=== PATIENT | female | born 1995 | race Caucasian/White ===

== ENCOUNTER 2019-06-19 12:26 | Emergency (ER) | payer OTHER, SELFPAY ==
--- NOTE | ~2019-06-19 | XR_ITS ---
EXAMINATION: XR abdomen/kub 1V EXAM DATE: 06/19/2019 14:49 INDICATION: Right ureteral stone. Right flank pain. TECHNIQUE: Frontal projection of the upper abdomen, frontal projection lower abdomen/pelvis for inter pretation. Correlation is made to chest CT same date. FINDINGS: 3 mm right distal ureteral stone is identified, indicated. There is expected amount of col onic stool and gas. No small bowel dilation, nonobstructive bowel gas pattern. There is no organo megaly suspected. The bones are unremarkable. Lung bases are unremarkable. IMPRESSION: Small distal right ureteral stone identified. Reviewed, dictated and finalized at location A. 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
--- NOTE | ~2019-06-19 | CT_ITS ---
EXAMINATION: CT abdomen pelvis wo con DATE: 06/19/2019 13:40 INDICATION: Right flank pain TECHNIQUE: Computed tomography (CT) of the abdomen and pelvis was performed without intravenous contr ast. The dose-length product was 203.74 mGy-cm. Automated exposure control and iterative reconstructi on technique were employed. COMPARISON: No prior studies for comparison. FINDINGS: Lung bases unremarkable. Heart size normal. No significant pleural or pericardial effusion. No significant vascular abnormality. There are multiple punctate 1-2 mm nonobstructing left renal stones. There are nonobstructing right r enal stones. There is a calcification in the right pelvis measuring 3.4 mm, likely obstructing distal right ureteral stone, image 148. There is mild right hydronephrosis, although the distal ureter is n ot well visualized. Bladder is unremarkable. Focal fatty infiltration of the liver at the falciform ligament. The spleen, pancreas, adrenal glands are unremarkable. Nonobstructive bowel gas pattern. No abnormal pelvic masses or fluid collections. No free air or free fluid. Gallbladder is present. IMPRESSION: 1. Probable obstructing 3.4 mm distal right ureteral stone with mild hydronephrosis. 2: Nonobstructing bilateral nephrolithiasis. Reviewed, dictated and finalized at location A. 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 Probable obstructing 3.4 mm distal right ureteral stone with mild hydronephr osis. 2: Nonobstructing bilateral nephrolithiasis.
[2019-06-19 13:05] LABS: Add Urine Microscopic? YES; Appearance Urine Sl Cloudy (Clear); Bilirubin Urine Negative (Negative); Blood Urine 3+ (Negative); Color Urine Yellow (Yellow); Glucose Urine UA Negative (Negative); Ketones Urine Trace (Negative); Leukocyte Esterase Ur Negative LEU/UL (Negative); Nitrate Urine Negative (Negative); Protein Urine Negative (Negative); Specific Grav Ur >= 1.030 (1.010-1.020); Urobilinogen Urine 0.2 mg/dL (0.2-1.0)
[2019-06-19] MEDS: KETOROLAC 30 MG/ML VIAL (*BKC) (13:08)
[2019-06-19 13:13] LABS: RBC Urine 21-50 /hpf (0-2)
[2019-06-19 13:14] LABS: Bacteria Urine 1+ /hpf; Mucus Urine Moderate /lpf; Squamous Epithelial Cell Urine Few /hpf (Few); WBC Urine 0-3 /hpf (0-3)
[2019-06-19] MEDS: SODIUM CHLORIDE 0.9% IV 1,000 ML 999 ML (13:15)
--- NOTE | 2019-06-19 13:16 | ED.ABDPAIN ---
HPI - Abdominal Pain General Chief Complaint: Urogenital-Female Stated Complaint: back pain Time Seen by Provider: 06/19/19 13:05 Source: patient Mode of arrival: ambulatory Limitations: no limitations History of Present Illness HPI narrative: chanda thomas a 23-year-old female patient. She presents ambulatory to the emergency room. She states that she has had right flank pain for the past 2 days. It is a sharp pain. She rates it at 8/10. She has not taken anything for the pain at home. She states that she had a similar type of pain last December. At that time she did not have a CT scan done. Her mother has history of kidney stones. Rate denies any hematuria. She does have some dysuria. No history of fever. No nausea or vomiting. MD elicited complaint: flank pain Pertinent past history: other ( History of hyperthyroidism. History of depression.) Pain Consistency: constant Location: R flank Severity: severe Pain scale (0-10): 8 Quality: sharp Radiation: none Exacerbating factors: nothing Relieving factors: nothing Context: confirms other ( Spontaneous onset. Had similar symptoms in December of last year.) Associated symptoms: other ( No history of nausea vomiting or diarrhea. No history of hematuria. Has dysuria.) Treatments prior to arrival: other ( None) Related Data Home Medications Medication Instructions Recorded Confirmed albuterol sulfate [ProAir HFA] 1 puff INHALATION QID PRN 06/19/19 06/19/19 etonogestrel-ethinyl estradiol 1 vag ring VAGINAL ONCE 06/19/19 06/19/19 [NuvaRing] fluoxetine 40 mg PO DAILY 06/19/19 06/19/19 levothyroxine [Synthroid] 200 mcg PO DAILY 06/19/19 06/19/19 Allergies Allergy/AdvReac Type Severity Reaction Status Date / Time No Known Drug Allergies Allergy Verified 03/30/12 12:43 Review of Systems Review of Systems: All systems reviewed & are unremarkable except as noted in HPI and below Constitutional: Constitutional: Reports as per HPI, Reports no additional constitutional complaints, Denies chills, Denies fever(s) and Denies weakness Eyes: Eyes: Reports as per HPI, Reports no additional eye complaints and Denies change in vision ENT: Reports system reviewed and no additional complaints, except as documented, Denies dizziness, Denies epistaxis, Denies nasal congestion and Denies sore throat Cardiovascular: Cardiovascular: Reports as per HPI, Reports no additional cardiovascular complaints, Denies chest pain and Denies radiating jaw, neck or arm pain Respiratory: Respiratory: Reports as per HPI, Reports no additional respiratory complaints, Denies cough and Denies dyspnea Gastrointestinal: Gastrointestinal: Reports as per HPI, Reports no additional gastrointestinal complaints, Denies diarrhea and Denies vomiting Genitourinary: Genitourinary: Reports no additional female genitourinary complaints and Reports flank pain Comments: has some dysuria. No fever. Musculoskeletal: Musculoskeletal: Reports no additional musculoskeletal complaints and Denies arthralgias Integumentary/Breasts: Skin/Breast: Reports system reviewed and no additional complaints, except as docu, Denies erythema and Denies rash Neurologic: Reports system reviewed and no additional complaints, except as documented, Denies dizziness, Denies headache(s), Denies focal weakness, Denies numbness and Denies weakness Psychiatric: Psychiatric: Reports no additional psychiatric complaints, Reports as per HPI and Reports depression Endocrine: Comments: History of hypothyroidism Hematologic/Lymphatic: Hematologic/Lymphatic: Reports no additional hematologic/lymphatic complaints, Reports as per HPI, Denies easy bleeding and Denies easy bruising Allergic/Immunologic: Allergic/Immunologic: Reports no additional allergic/immunologic complaints, Denies lip swelling and Denies tongue swelling PMFSH Past Medical History Medical History (Updated 06/19/19 @ 14:19 by Brant Smith MD) Depression Hypothyroidism
[2019-06-19 13:20] VITALS: BP 159/98; PULSE 98; RESP 20; TEMP 37.5; O2SAT 96
[2019-06-19 13:24] LABS: Pregnancy On Board Control Negative; Specific Gravity Ur > 1.030 (1.010-1.035); Urine Pregnancy Test Negative
[2019-06-19 13:33] LABS: Basophils Absolute Auto 0.05 K/mm3 (0.00-0.10); Basophils Percent Auto 0.5 % (0.0-1.0); Eosinophils Absolute Auto 0.04 K/mm3 (0.02-0.50); Eosinophils Percent Auto 0.4 % (1.0-6.0); Hematocrit 36.4 % (35.0-49.0); Hemoglobin 12.3 g/dL (12.0-15.0); Immature Granulocyte Absolute 0.03 K/mm3 (0.00-0.00); Immature Granulocyte Percent A 0.3 % (0.0-0.0); Lymphocytes Absolute Auto 3.17 K/mm3 (1.10-4.50); Mean Corpuscular HGB Conc 33.8 g/dL (32.0-36.0); Mean Corpuscular Hemoglobin 30.8 pg (27.0-31.0); Mean Corpuscular Volume 91.2 fL (78.0-102.0); Mean Platelet Volume 9.6 fl (9.2-11.8); Monocytes Absolute Auto 0.78 K/mm3 (0.10-0.90); Monocytes Percent Auto 7.6 % (2.0-11.0); Neutrophils Absolute Auto 6.1 K/mm3 (1.7-7.2); Neutrophils Percent Auto 60.2 % (50.0-70.0); Platelet Count Result 382 K/mm3 (150-420); Red Blood Count 3.99 M/mm3 (4.20-5.40); Red Cell Distribution Width 12.6 % (11.6-14.4); White Blood Count 10.2 K/mm3 (4.8-10.8)
[2019-06-19 13:49] LABS: Alanine Aminotransferase 27 U/L (14-59); Albumin Level 3.5 g/dL (3.4-5.0); Alkaline Phosphatase 74 U/L (46-116); Anion Gap 11.5 mmol/L (7-16); Aspartate Amino Transferase 23 U/L (15-37); Bilirubin,Total 0.7 mg/dL (0.00-1.00); Blood Urea Nitrogen 7 mg/dL (7-18); Calcium 8.7 mg/dL (8.5-10.1); Carbon Dioxide 25 mmol/L (21-32); Chloride 107 mmol/L (98-108); Estimated Glomerular Filt Rate > 60; Glucose 105 mg/dL (70-99); Osmolality Calculated 288 mOsm/kg (285-295); Potassium 3.5 mmol/L (3.5-5.1); Sodium 140 mmol/L (136-145); Total Protein 7.2 g/dL (6.4-8.2)
[2019-06-19 15:10] VITALS: RESP 16
== END 2019-06-19 15:13 | disposition home or self-care (01) ==
PROVIDERS: Emergency Provider Surgery; PCP Family Medicine
DX: N20.1 Calculus of ureter (principal)
CPT/HCPCS: 36415; 74018; 74176; 80053; 81001; 81025; 85025; 96361; 96365; 96375; 99283; 99284; J0696; J1885; J7030

== ENCOUNTER 2019-07-01 06:02 | Emergency (ER) | payer OTHER, SELFPAY ==
--- NOTE | ~2019-07-01 | CT_ITS ---
EXAMINATION: CT abdomen pelvis wo con EXAM DATE: 07/01/2019 07:34 INDICATION: Right flank pain. TECHNIQUE: Spiral CT of the abdomen and pelvis was performed without contrast. Axial, coronal and sag ittal images were reviewed. The dose-length product (DLP) for this examination was 457.93 mGy-cm. T he exposure was tailored according to patient size (auto mA exposure control), and iterative reconstr uction (ASIR) was used as additional dose reduction technique. Comparison is made to prior examinatio n from 06/19/2019. FINDINGS: There is a right UVJ 3 mm stone, mild to moderate right-sided obstructive nephropathy, mild interval increase compared to prior study. Several additional punctate bilateral calyceal stones. T he uterus is unremarkable. The bladder is unremarkable. The liver, spleen, adrenal glands and panc reas are unremarkable. Gallbladder is unremarkable. No biliary obstruction. There is no retroperit oscar or pelvic lymphadenopathy. The appendix is normal. The stomach and small bowel are unremarkable. There is expected amount of c olonic stool. No free intraperitoneal gas. The heart is normal in size. There are no pericardial or pleural effusions. Several right lower lobe small nodules likely postinfectious given appearance , patient demographic. There are no osteoblastic or osteolytic lesions identified. IMPRESSION: 1. Right UVJ 3 mm nephrolithiasis with mild to moderate obstructive nephropathy. 2. Several right basilar nodules likely postinfectious. Reviewed, dictated and finalized at location A. IMPRESSION: 1. Right UVJ 3 mm nephrolithiasis with mild to moderate obstructive nephropath y. 2. Several right basilar nodules likely postinfectious.
[2019-07-01 06:04] VITALS: BP 142/100; PULSE 88; RESP 20; TEMP 36.6; O2SAT 99
--- NOTE | 2019-07-01 06:20 | ED.GENADULT ---
HPI - General Adult General Chief complaint: Urogenital-Female Stated complaint: kidney stones History of Present Illness HPI narrative: Shelia Is a 23-year-old with a past medical history of hypothyroidism and a previous kidney stone that presented to the emergency department with right flank pain. She was diagnosed with a kidney stone 2 weeks ago. She has had waxing waning pain since that time. this time she had excruciating pain and ran out of medications. She denies any dysuria, fevers, chills, nausea, vomiting, chest pain and shortness of breath but does admit constipation. Related Data Home Medications Medication Instructions Recorded Confirmed albuterol sulfate [ProAir HFA] 1 puff INHALATION QID PRN 06/19/19 07/01/19 etonogestrel-ethinyl estradiol 1 vag ring VAGINAL ONCE 06/19/19 07/01/19 [NuvaRing] fluoxetine 40 mg PO DAILY 06/19/19 07/01/19 levothyroxine [Synthroid] 200 mcg PO DAILY 06/19/19 07/01/19 Allergies Allergy/AdvReac Type Severity Reaction Status Date / Time No Known Drug Allergies Allergy Verified 03/30/12 12:43 Review of Systems Constitutional: Constitutional: Reports no additional constitutional complaints Eyes: Eyes: Reports no additional eye complaints ENT: Reports system reviewed and no additional complaints, except as documented Cardiovascular: Cardiovascular: Reports no additional cardiovascular complaints Respiratory: Respiratory: Reports no additional respiratory complaints Gastrointestinal: Gastrointestinal: Reports no additional gastrointestinal complaints Genitourinary: Genitourinary: Reports as per HPI Musculoskeletal: Musculoskeletal: Reports no additional musculoskeletal complaints Integumentary/Breasts: Skin/Breast: Reports system reviewed and no additional complaints, except as docu Neurologic: Reports system reviewed and no additional complaints, except as documented Psychiatric: Psychiatric: Reports no additional psychiatric complaints Endocrine: Endocrine: Reports no additional endocrine complaints Hematologic/Lymphatic: Hematologic/Lymphatic: Reports no additional hematologic/lymphatic complaints Allergic/Immunologic: Allergic/Immunologic: Reports no additional allergic/immunologic complaints PMFSH Past Medical History Medical History Depression Hypothyroidism Surgical History Surgical History Hx of tonsillectomy Family History Family History Mother No problems noted. Social History Social History Additional smoking assessment comments: uses vape every day Alcohol intake: current Substance use: current Substance use type: marijuana Exam Const: General: alert Orientation/consciousness: patient oriented x3 Limitations: No altered mental status Other: mild distress, was rocking back and forth HENMT: Head: normal to inspection Other: normocephalic, atraumatic Eyes: Conjunctivae: conjunctivae normal Pupils: Equal, round and reactive pupils present Neck: Neck: normal visual inspection Resp: Effort & Inspection: normal respiratory effort Auscultation: clear to auscultation bilaterally Cardio: Rate: regular rate Rhythm: regular rhythm GI: GI Palp: Yes Soft to palpation, No Tenderness to palpation present (GI), No Guarding due to palpation present (GI) and No Rigid due to palpation : Other: right CVA tenderness, mild suprapubic tenderness Skin: General skin exam: normal color Rashes: no rashes Neuro: General: patient oriented x3 and moves all extremities Extrem: General: normal to inspection Psych: Mental Status: mental status grossly normal Course Course Emergency Course: Shelia was evaluated. She was given 4mg of morphine for pain. A UA, u-HCG, CT abdomen, CBC and CMP. As urine pregna
[2019-07-01] MEDS: MORPHINE SULFATE 4 MG/ML INJ IM (06:23)
[2019-07-01 06:31] LABS: Appearance Urine Clear (Clear); Bilirubin Urine Negative (Negative); Color Urine Yellow (Yellow); Glucose Urine UA Negative (Negative); Ketones Urine Negative (Negative); Leukocyte Esterase Ur Negative (Negative); Nitrate Urine Negative (Negative); Protein Urine Negative (Negative); Urobilinogen Urine 0.2 mg/dL (0.2-1.0)
[2019-07-01 06:38] LABS: Add Urine Microscopic? YES; Blood Urine Trace-Intact (Negative); Pregnancy On Board Control Negative; Squamous Epithelial Cell Urine Rare /hpf (Few); Urine Pregnancy Test Negative; WBC Urine 0-3 /hpf (0-3)
[2019-07-01 06:39] LABS: Bacteria Urine Trace /hpf
[2019-07-01] MEDS: KETOROLAC (*BKC) 60 MG/2 ML VIAL IM (06:44)
[2019-07-01 06:53] LABS: Basophils Absolute Auto 0.05 K/mm3 (0.00-0.10); Basophils Percent Auto 0.4 % (0.0-1.0); Eosinophils Absolute Auto 0.12 K/mm3 (0.02-0.50); Eosinophils Percent Auto 0.9 % (1.0-6.0); Hematocrit 39.2 % (35.0-49.0); Hemoglobin 12.9 g/dL (12.0-15.0); Immature Granulocyte Absolute 0.07 K/mm3 (0.00-0.00); Immature Granulocyte Percent A 0.5 % (0.0-0.0); Lymphocytes Absolute Auto 3.24 K/mm3 (1.10-4.50); Lymphocytes Percent Auto 23.6 % (18.0-42.0); Mean Corpuscular HGB Conc 32.9 g/dL (32.0-36.0); Mean Corpuscular Hemoglobin 30.9 pg (27.0-31.0); Mean Corpuscular Volume 93.8 fL (78.0-102.0); Mean Platelet Volume 9.3 fl (9.2-11.8); Monocytes Percent Auto 9.5 % (2.0-11.0); Neutrophils Absolute Auto 8.9 K/mm3 (1.7-7.2); Neutrophils Percent Auto 65.1 % (50.0-70.0); Platelet Count Result 387 K/mm3 (150-420); Red Blood Count 4.18 M/mm3 (4.20-5.40); Red Cell Distribution Width 12.6 % (11.6-14.4); White Blood Count 13.7 K/mm3 (4.8-10.8)
[2019-07-01 07:10] LABS: Alanine Aminotransferase 31 U/L (14-59); Albumin Level 3.7 g/dL (3.4-5.0); Alkaline Phosphatase 82 U/L (46-116); Anion Gap 14.8 mmol/L (7-16); Aspartate Amino Transferase 20 U/L (15-37); Bilirubin,Total 0.1 mg/dL (0.00-1.00); Blood Urea Nitrogen 10 mg/dL (7-18); Calcium 8.5 mg/dL (8.5-10.1); Carbon Dioxide 26 mmol/L (21-32); Chloride 107 mmol/L (98-108); Estimated CRCL calculation 74 ml/min; Estimated Glomerular Filt Rate > 60; Glucose 93 mg/dL (70-99); Lipase 89 U/L (73-393); Osmolality Calculated 297 mOsm/kg (285-295); Potassium 3.8 mmol/L (3.5-5.1); Sodium 144 mmol/L (136-145)
--- NOTE | 2019-07-01 07:46 | PC.NURSE ---
Pt. resting and has no c/o at this time. Explained extended wait time for CT report reading. Will keep informed as soon as report is received.
[2019-07-01 08:16] VITALS: BP 125/78; PULSE 85; RESP 20; O2SAT 98
== END 2019-07-01 08:18 | disposition home or self-care (01) ==
PROVIDERS: Emergency Provider Family Medicine; PCP Family Medicine
DX: R10.9 Unspecified abdominal pain (principal)
CPT/HCPCS: 36415; 74176; 80053; 81001; 81025; 83690; 85025; 96372; 99282; 99284; J1885; J2270

== ENCOUNTER 2019-09-15 19:14 | Emergency (ER) | payer OTHER, SELFPAY ==
--- NOTE | ~2019-09-15 | XR_ITS ---
EXAMINATION: XR ankle RT min 3V, XR foot RT min 3V EXAM DATE: 09/15/2019 20:17 (accession [id number]), 09/15/2019 20:18 (accession [id number]) INDICATION: Initial encounter following injury, with pain of the right ankle, foot. TECHNIQUE: Right foot dorsoplantar, lateral and oblique projections obtained and reviewed. Right ank le frontal, lateral and oblique projections obtained and reviewed. Comparison is made to prior examin ation from prior right foot examination from 10/01/2013. FINDINGS: Right metatarsal bones unremarkable. The right ankle mortise appears intact. Normal Boehl er's angle. There are no acute fractures or dislocations identified. There is no subcutaneous gas. The soft tissue is unremarkable. There are no radiopaque foreign bodies. IMPRESSION: 1. Right foot, ankle exam without acute osseous findings. Reviewed, dictated and finalized at location A. IMPRESSION: 1. Right foot, ankle exam without acute osseous findings.
--- NOTE | ~2019-09-15 | XR_ITS ---
EXAMINATION: XR lumbar spine 2-3V EXAM DATE: 09/15/2019 20:18 INDICATION: Jumped from second-story. TECHNIQUE: Lumber spine frontal, lateral, lateral L5-S1 projections for interpretation. There is no prior study for comparison. FINDINGS: There are no acute fractures identified. There are small Schmorl's nodes at many of the t horacolumbar endplates, minimal disc disease. Vertebral body and disc heights are well-maintained. Th e vertebral bodies are aligned in the AP dimension. No spondylolysis. Sacrum, sacroiliac joints, sacr al arcuate lines are intact. Paraspinal soft tissue is unremarkable. IMPRESSION: No acute lumbar findings suspected. Reviewed, dictated and finalized at location A.
--- NOTE | ~2019-09-15 | XR_ITS ---
EXAMINATION: XR ankle LT min 3V, XR foot LT min 3V EXAM DATE: 09/15/2019 20:17 (accession [id number]), 09/15/2019 20:18 (accession [id number]) INDICATION: No known recent injury provided at this time. Pain of the left foot, ankle. Jumped from second-story. TECHNIQUE: Left foot dorsoplantar, lateral and oblique projections obtained and reviewed. Left ankle frontal, lateral and oblique projections obtained and reviewed. There is no prior study for compari son. FINDINGS: There is a vertical lucency identified on the lateral projection through the posterior mal leolus, posterior aspect of the tibial plafond. This finding has been indicated, marked on the examin ation for review, clinical correlation. This is most likely an acute closed posttraumatic nondisplace d fracture. There is swelling over the ankle laterally. Left metatarsal bones unremarkable. The lef t ankle mortise appears intact. Boehler's angle is normal. IMPRESSION: Probable acute nondisplaced left posterior tibial plafond fracture. Recommend orthopedic consult. Reviewed, dictated and finalized at location A. IMPRESSION: Probable acute nondisplaced left posterior tibial plafond fracture. Recommend orthopedic consult.
[2019-09-15 19:20] VITALS: BP 144/98; PULSE 97; RESP 19; TEMP 37.1; O2SAT 97
--- NOTE | 2019-09-15 19:27 | ED.GENADULT ---
HPI - General Adult General Chief complaint: Extremity Injury, Lower Stated complaint: fall Time Seen by Provider: 09/15/19 19:21 Source: RN notes reviewed History of Present Illness HPI narrative: Patient presents emergency department from home for a fall. Patient states that she is from [place] states that they are some condos here and she had come in last night and gone to her hotel where she was staying with a friend her friend's room is next door and she got locked out of her room she states that she went into her friend's room and tried to climb to the other balcony to get into the room and fell approximately 12 feet. Patient states she laid on her bilateral feet she denies striking her head or any other injuries she states that since that time she is a progressive pain in her bilateral feet to the point that she is no longer able to walk she denies striking her head or loss of consciousness chest pain shortness of breath abdominal pain nausea vomiting low back pain numbness or tingling in the extremities or any other symptoms she denies taking any pain medication at home Related Data Home Medications Medication Instructions Recorded Confirmed etonogestrel-ethinyl estradiol 1 vag ring VAGINAL ONCE 09/15/19 [NuvaRing] fluoxetine 40 mg PO DAILY 09/15/19 levothyroxine 200 mcg PO DAILY 09/15/19 Allergies Allergy/AdvReac Type Severity Reaction Status Date / Time No Known Allergies Allergy Verified 09/15/19 19:20 Review of Systems Review of Systems: Narrative: Gen.: Denies fevers or chills Eyes: Denies eye pain or visual change ENT: Denies congestion Respiratory: Denies shortness of breath or cough CV: Denies chest pain or palpitations GI: Denies abdominal pain nausea, emesis or diarrhea denies hematuria Musculoskeletal: D see HPI Neuro: Denies numbness, tingling, weakness or focal weakness Skin: Denies rash Except as documented, all other systems reviewed and negative COUNT INCLUDES THE [facility] Past Medical History Medical History (Updated 09/15/19 @ 22:27 by Alfredo Underwood DO) Hypothyroidism Family History Family History (Updated 10/01/13 @ 12:40 by DOCTOR UNKNOWN) Other Cerebrovascular accident Family history of arthritis Family history of cardiovascular disease Family history of lung disease Hypertension Social History Social History Smoking status: Never smoker Gender identity (if verbalized by the patient): Female Exam Narrative: Exam Narrative: APPEARANCE: Well appearing, no apparent distress, well-nourished. HEENT: normocephalic atraumtaic. TMs clear bilaterally. Oral mucosa moist. No tenderness over bilateral zygomatic arch. Full range of motion of jaw without pain. EYES: PERRL NECK: Supple. No midline tenderness to palpation. Full range of motion without pain RESPIRATORY: No respiratory distress. Clear to auscultation bilaterally CARDIOVASCULAR: Regular rate and rhythm without murmurs rubs or gallops. ABDOMINAL: Soft, nontender, nondistended, no rebound or guarding MUSCULOSKELETAl: Moves all extremities. No tenderness to palpation of bilateral upper extremities. No clubbing cyanosis or edema bilateral lower extremities are tender to palpation diffusely of the ankles and calcaneus region the bilateral knees and hips are nontender to palpation Alexia dorsalis pedis pulse 2+ bilateral lower extremities neurovascular intact Back: No midline thoracic or lumbar tenderness to palpation Pelvis: Stable, nontender NEURO: Awake and alert ?3. Follows commands. Speech normal. No focal deficits. SKIN:: Warm, dry. Normal Color Course Course Emergency Course: Discussed with Dr. Olivares presentation work-up. This time agrees with plan for posterior short leg splint follow-up as outpatient Discussed with patient results of workup and diagnosis. Discussed need for follow-up with primary care, proper use of medication, and reasons to return to the emergency d
[2019-09-15 22:45] VITALS: BP 138/87; PULSE 91; RESP 16; O2SAT 100
[2019-09-15] MEDS: IBUPROFEN 600 MG TABLET PO (22:45)
== END 2019-09-15 22:45 | disposition home or self-care (01) ==
PROVIDERS: Emergency Provider Emergency Medicine; PCP Family Medicine
DX: S82.875A Nondisplaced pilon fracture of left tibia, initial encounter for closed fracture (principal); E03.9 Hypothyroidism, unspecified; W13.0XXA Fall from, out of or through balcony, initial encounter
CPT/HCPCS: 29515; 72100; 73610; 73630; 81025; 99284; A9270

== ENCOUNTER 2019-09-20 09:21 | Outpatient (CLI) | payer OTHER, SELFPAY ==
--- NOTE | ~2019-09-20 | XR_ITS ---
XR ankle LT min 3V 09/20/2019 09:41 INDICATION: Status post fall from second-story. Left ankle pain and swelling. Medial laceration. PROCEDURE: 3 views left ankle COMPARISON: 10/20/2011 FINDINGS: There is a vertically oriented lucency in the distal aspect of the tibia posteriorly, suspi cious for nondisplaced fracture. Ankle mortise intact. Mild lateral soft tissue swelling. The soft ti ssues appear within normal limits. No foreign bodies are identified. IMPRESSION: 1: Possible nondisplaced fracture involving the distal tibia posteriorly. Consider correlation with C T or MRI. Reviewed, dictated and finalized at location A. IMPRESSION: 1: Possible nondisplaced fracture involving the distal tibia posteriorly. Consi karyna correlation with CT or MRI.
== END 2019-09-20 09:22 | disposition home or self-care (01) ==
PROVIDERS: PCP Family Medicine; Visit Provider Orthopaedic Surgery
DX: S99.912A Unspecified injury of left ankle, initial encounter (principal)
CPT/HCPCS: 73610

== ENCOUNTER 2020-04-24 10:26 | Outpatient (CLI) | payer OTHER, SELFPAY ==
[2020-04-24 22:22] LABS: SARS-CoV-2 RNA PCR Positive
== END 2020-04-24 10:27 | disposition home or self-care (01) ==
LOC: CHSLAB 10:29
DX: U07.1 COVID-19 (principal)
CPT/HCPCS: C9803; U0003

== ENCOUNTER 2021-04-02 14:57 | Outpatient (CLI) | payer OTHER, SELFPAY ==
[2021-04-02 20:07] LABS: SARS-CoV-2 Ag Negative (Negative)
== END 2021-04-02 14:58 | disposition home or self-care (01) ==
LOC: CHSLAB 15:01
PROVIDERS: Visit Provider Nurse Practitioner
DX: R05.9 Cough, unspecified (principal); Z20.822 Contact with and (suspected) exposure to COVID-19
CPT/HCPCS: 87426; C9803

== ENCOUNTER 2021-10-04 06:05 | Emergency (ER) | payer OTHER, SELFPAY ==
--- NOTE | ~2021-10-04 | CT_ITS ---
EXAMINATION: CT abdomen pelvis wo con DATE: 10/04/2021 07:00 INDICATION: Bilateral flank pain. Fever. Nausea. TECHNIQUE: Computed tomography (CT) of the abdomen and pelvis was performed without intravenous contr ast. Automated exposure control and iterative reconstruction technique were employed. The dose-length product was 631.51 mGy-cm. COMPARISON: CT abdomen and pelvis 07/01/2019 FINDINGS: The visualized portions of the lung bases demonstrate minimal atelectasis. No pleural effus ion. The heart size is normal. No pericardial effusion. The liver, gallbladder, spleen, pancreas, and adrenal glands are normal. There are four 1-2 mm stones in right kidney. There are 3 mm and 2 mm sto som in left kidney. There is mild left hydronephrosis and hydroureter. There is a 4 mm stone in dista l left ureter. There are no dilated loops of bowel. The appendix is normal. There are no pathological ly enlarged lymph nodes. There is no free intraperitoneal fluid. There is mild thoracolumbar spondylo sis. IMPRESSION: 1. 4 mm stone in distal left ureter with mild left hydronephrosis and hydroureter. 2. Bilateral nonobstructing kidney stones. Reviewed, dictated and finalized at location A. IMPRESSION: 1. 4 mm stone in distal left ureter with mild left hydronephrosis and hydrouret er. 2. Bilateral nonobstructing kidney stones.
[2021-10-04 06:15] VITALS: BP 103/75; PULSE 100; RESP 18; TEMP 37.7; O2SAT 98
[2021-10-04 06:15] LABS: Add Urine Microscopic? YES; Appearance Urine Clear (Clear); Bilirubin Urine Negative (Negative); Blood Urine 2+ (Negative); Color Urine Yellow (Yellow); Glucose Urine UA Negative (Negative); Ketones Urine Trace (Negative); Leukocyte Esterase Ur 1+ LEU/UL (Negative); Nitrate Urine Negative (Negative); Protein Urine Trace (Negative); Specific Grav Ur 1.015 (1.010-1.020)
[2021-10-04 06:18] LABS: Squamous Epithelial Cell Urine Moderate /hpf (Few)
[2021-10-04 06:19] LABS: Bacteria Urine 2+ /hpf
--- NOTE | 2021-10-04 06:27 | ED.FEMALEGU ---
HPI - Female Genitourinary General Chief complaint: Urogenital-Female Stated complaint: possible kidney stone/covid + Time Seen by Provider: 10/04/21 06:28 Source: patient Mode of arrival: ambulatory Limitations: no limitations History of Present Illness MD elicited complaint: dysuria, UTI and flank pain Pertinent past history: other ( kidney stones) Onset (ago): day(s) (1) Severity: moderate Female Urogenital Radiation: LLQ Quality of pain: sharp and stabbing Consistency: constant Vaginal discharge: none Vaginal bleeding: none Urinary symptoms: Dysuria, Urgency and Frequency Exacerbating factors: none Relieving factors: none Associated symptoms: chills, nausea, vomiting and other ( cough patient recently diagnosed with COVID) Treatment prior to arrival: none Related Data Home Medications Medication Instructions Recorded Confirmed etonogestrel 0.12 mg-ethinyl 1 vag ring vaginal ONCE 06/19/19 10/04/21 estradiol 0.015 mg/24 hr vaginal ring (NuvaRing) levothyroxine 200 mcg tablet 200 mcg PO DAILY 09/15/19 10/04/21 Lexapro 10 mg PO DIRECTED 10/04/21 10/04/21 Allergies Allergy/AdvReac Type Severity Reaction Status Date / Time No Known Drug Allergies Allergy Unknown Unknown Verified 10/04/21 06:19 Review of Systems Review of Systems: All systems reviewed & are unremarkable except as noted in HPI and below PMFSH Past Medical History Medical History (Updated 10/04/21 @ 07:20 by Daniel Rose MD) Anxiety Asthma Depression Depression Fracture, posterior malleolus Hearing loss Hypothyroidism Hypothyroidism Stomach pain Surgical History Surgical History Hx of tonsillectomy Family History Family History Mother No problems noted. 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 Gender identity (if verbalized by the patient): Female Exam Const: General: no acute distress, alert and ill appearing acutely Nutritional Appearance: well nourished Orientation/consciousness: patient oriented x3 Limitations: no limitations HENMT: Head: normal to inspection Ears: external ears normal General nose exam: Normal external nose present Face and sinus: normal facial exam Eyes: Conjunctivae: conjunctivae normal Pupils: Equal, round and reactive pupils present EOM: EOMs intact bilaterally Neck: Neck: normal visual inspection Resp: Effort & Inspection: normal respiratory effort Auscultation: clear to auscultation bilaterally Cardio: Rate: regular rate Rhythm: regular rhythm GI: GI Palp: Yes Soft to palpation, Yes Tenderness to palpation present (GI) ( moderate left upper quadrant), Yes Guarding due to palpation present (GI) ( mild) and No Rebound tenderness present Auscultation: normal bowel sounds Rectal Exam: normal sphincter tone Back/Spine/Pelvis: Back: CVA tenderness ( left flank) Cervical Spine: cervical ROM normal Thoracic/Lumbar Spine: thoraco-lumbar ROM normal Skin: General skin exam: normal color Rashes: no rashes Neuro: General: patient oriented x3, moves all extremities, no focal motor deficits and CN's II-XI intact bilaterally Speech: normal speech Gait exam (Neuro): Normal gait present Extrem: General: normal to inspection and no clubbing, cyanosis or edema Psych: Appearance: grossly normal and well kempt Affect: normal affect Attitude: cooperative MDM - Fem
[2021-10-04] MEDS: KETOROLAC 30 MG/ML VIAL (*BKC) IM (06:35)
[2021-10-04 06:45] LABS: Hematocrit 37.7 % (35.0-49.0); Hemoglobin 12.6 g/dL (12.0-15.0); Mean Corpuscular HGB Conc 33.4 g/dL (32.0-36.0); Mean Corpuscular Hemoglobin 31.8 pg (27.0-31.0); Mean Corpuscular Volume 95.2 fL (78.0-102.0); Mean Platelet Volume 9.7 fl (9.2-11.8); Platelet Count Result 230 K/mm3 (150-420); Red Blood Count 3.96 M/mm3 (4.20-5.40); Red Cell Distribution Width 12.9 % (11.6-14.4); White Blood Count 5.9 K/mm3 (4.8-10.8)
[2021-10-04 06:57] LABS: Anion Gap 9 mmol/L (8-16); Blood Urea Nitrogen 10 mg/dL (7-18); Calcium 8.5 mg/dL (8.5-10.1); Carbon Dioxide 22 mmol/L (21-32); Chloride 106 mmol/L (98-108); Estimated CRCL calculation 80 ml/min; Estimated Glomerular Filt Rate > 60; Glucose 101 mg/dL (70-99); Osmolality Calculated 283 mOsm/kg (285-295); Potassium 3.7 mmol/L (3.5-5.1); Sodium 137 mmol/L (136-145)
[2021-10-04 07:20] VITALS: BP 113/62; PULSE 85; RESP 16; TEMP 37.7; O2SAT 98
[2021-10-04 07:24] LABS: Band Neutrophils Percent 0 % (0-6); Basophils Absolute Manual 0.05 K/mm3 (0-0.1); Basophils Percent Manual 1 % (0-1); Eosinophils Percent Manual 0 % (1-6); Lymphocytes Absolute Manual 0.53 K/mm3 (1.1-4.5); Lymphocytes Percent Manual 9 % (18-44); Monocytes Absolute Manual 0.59 K/mm3 (0.1-0.90); Monocytes Percent Manual 10 % (3-9); Neutrophils Absolute Manual 4.72 K/mm3 (1.7-7.2); Neutrophils Percent Manual 80 % (46-73); Platelet Estimate Adequate (Adequate); Total Cells Counted 100
== END 2021-10-04 07:25 | disposition home or self-care (01) ==
PROVIDERS: Emergency Provider Emergency Medicine; PCP Family Medicine
DX: N20.1 Calculus of ureter (principal); N39.0 Urinary tract infection, site not specified
CPT/HCPCS: 36415; 74176; 80048; 81001; 85025; 87086; 87088; 96372; 99284; J1885

== ENCOUNTER 2022-07-30 18:15 | Emergency (ER) | payer OTHER, SELFPAY ==
--- NOTE | ~2022-07-30 | XR_ITS ---
XR wrist RT min 3V 07/30/2022 19:06 INDICATION: Right wrist pain PROCEDURE: 4 views right wrist COMPARISON: No prior studies for comparison. FINDINGS: Fracture, dislocation or subluxation is not identified. The soft tissues appear within norm al limits. No foreign bodies are identified. IMPRESSION: 1: NO ACUTE BONE OR JOINT ABNORMALITY IDENTIFIED. Reviewed, dictated and finalized at location A.
--- NOTE | ~2022-07-30 | XR_ITS ---
XR hand RT min 3V 07/30/2022 19:05 INDICATION: Right hand pain PROCEDURE: 3 views right hand COMPARISON: No prior studies for comparison. FINDINGS: Fracture, dislocation or subluxation is not identified. The soft tissues appear within norm al limits. No foreign bodies are identified. IMPRESSION: 1: NO ACUTE BONE OR JOINT ABNORMALITY IDENTIFIED. Reviewed, dictated and finalized at location A.
[2022-07-30 18:24] VITALS: BP 116/72; PULSE 89; RESP 18; TEMP 36.6; O2SAT 100
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
[2022-07-30 19:35] VITALS: BP 121/81; PULSE 88; RESP 20; TEMP 36.7; O2SAT 100
== END 2022-07-30 19:37 | disposition home or self-care (01) ==
PROVIDERS: Emergency Provider Internal Medicine Critical Care Medicine
DX: M25.531 Pain in right wrist (principal); M79.641 Pain in right hand; E03.9 Hypothyroidism, unspecified; Z87.891 Personal history of nicotine dependence; W22.09XA Striking against other stationary object, initial encounter
CPT/HCPCS: 73110; 73130; 99283

== ENCOUNTER 2023-03-16 03:59 | Emergency (ER) | payer SELFPAY ==
[2023-03-16 04:05] VITALS: BP 133/86; PULSE 86; RESP 18; TEMP 37; O2SAT 98
[2023-03-16] MEDS: ACETAMINOPHEN 160 MG/5 ML ORAL SYRINGE 640 MG PO (04:15)
[2023-03-16] MEDS: prednisoLONE ORAL SOLN 30 MG/10 ML SOLUTION PO (04:16)
[2023-03-16 04:58] LABS: Strep Group A RT-PCR NOT DETECTED (Negative)
[2023-03-16 05:10] LABS: Influenza A QL RT-PCR Negative (Negative); Influenza B QL RT-PCR Negative (Negative); SARS-CoV-2 RNA PCR Negative (Negative)
[2023-03-16 05:14] LABS: RSV RNA, RT-PCR Negative (Negative)
--- NOTE | 2023-03-16 05:18 | ED.URI ---
HPI - URI/Sore Throat General Chief Complaint: Upper Respiratory Infection Stated Complaint: Ear Pain Time Seen by Provider: 03/16/23 03:59 Source: patient Mode of arrival: ambulatory Limitations: no limitations History of Present Illness HPI Narrative: Patient presents with sore throat with bilateral ear pressure sinus pressure in the frontal and maxillary sinus area with tender submandibular glands no shortness of breath no audible wheezing no fever chills. MD elicited complaint: sore throat, nasal congestion and sinus pain Related Data Home Medications Medication Instructions Recorded Confirmed etonogestrel 0.12 mg-ethinyl 1 vag ring vaginal ONCE 06/19/19 03/16/23 estradiol 0.015 mg/24 hr vaginal ring (NuvaRing) levothyroxine 200 mcg tablet 150 mcg PO DAILY 09/15/19 03/16/23 hydroxyzine pamoate 50 mg capsule 100 mg PO DAILY 07/30/22 03/16/23 Allergies Allergy/AdvReac Type Severity Reaction Status Date / Time No Known Drug Allergies Allergy Unknown Unknown Verified 07/30/22 18:46 Review of Systems Review of Systems: All systems reviewed & are unremarkable except as noted in HPI and below PMFSH Past Medical History Medical History (Updated 03/16/23 @ 05:21 by Manas Perdue MD) Anxiety Asthma Depression Depression Fracture, posterior malleolus Hearing loss Hypothyroidism Hypothyroidism Stomach pain Surgical History Surgical History Hx of tonsillectomy Family History Family History Mother No problems noted. 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 Gender identity (if verbalized by the patient): Female Exam Const: General: healthy appearing Nutritional Appearance: well nourished Orientation/consciousness: patient oriented x3 HENMT: Other: Frontal maxillary sinus tenderness with palpation with bilateral ear dullness Neck: Neck: normal visual inspection and lymphadenopathy Chest: Chest palpation & inspection: normal inspection of the chest Resp: Effort & Inspection: normal respiratory effort Cardio: Rate: regular rate Rhythm: regular rhythm Course Course Emergency Course: reassessment patient after receiving a dose of Tylenol and Orapred feels much better RSV COVID influenza and strep were all negative, will give her dose of IM ceftriaxone prior to discharge. Vital Signs Vital signs: Vital Signs Temperature 37.0 C 03/16/23 04:05 Pulse Rate 86 03/16/23 04:05 Respiratory Rate 18 03/16/23 04:05 Blood Pressure 133/86 03/16/23 04:05 Pulse Oximetry 98 03/16/23 04:05 Oxygen Delivery Room Air 03/16/23 04:05 Temperature 37.0 C 03/16/23 04:05 Pulse Rate 86 03/16/23 04:05 Respiratory Rate 18 03/16/23 04:05 Blood Pressure 133/86 03/16/23 04:05 Pulse Oximetry 98 03/16/23 04:05 Oxygen Delivery Room Air 03/16/23 04:05 MDM - URI/Sore Throat Lab Data Labs: Lab Results 03/16/23 Range/Units 03:59 Influenza A (RT-PCR) Negative (Negative) Influenza B (RT-PCR) Negative (Negative) RSV (RT-PCR) Negative (Negative) SARS-CoV-2 RNA (RT-PCR) Negative (Negative) Group A Strep (PCR) Not detected (Negative) Critical Care Time Critical Care Time Critical Care Time: No Discharge Plan Discharge Clinical Impression: Sinusitis Qualifiers: Sinusitis location: frontal
[2023-03-16] MEDS: cefTRIAXone 1 GM, LIDOCAINE HCL 1% LOCAL INJ 2.1 ML IM (05:29)
[2023-03-16 05:37] VITALS: BP 100/67; PULSE 74; RESP 18; TEMP 37.1; O2SAT 97
== END 2023-03-16 05:40 | disposition home or self-care (01) ==
PROVIDERS: Emergency Provider Emergency Medicine; PCP Family Medicine
DX: J01.10 Acute frontal sinusitis, unspecified (principal); E03.9 Hypothyroidism, unspecified; Z79.899 Other long term (current) drug therapy; Z87.891 Personal history of nicotine dependence; Z20.822 Contact with and (suspected) exposure to COVID-19
CPT/HCPCS: 87637; 87651; 96372; 99283; A9270; J0696

== ENCOUNTER 2023-06-24 09:54 | Emergency (ER) | payer OTHER, SELFPAY ==
--- NOTE | ~2023-06-24 | CT_ITS ---
EXAMINATION: CT abdomen pelvis w con DATE: 06/24/2023 13:41 INDICATION: Abdominal pain TECHNIQUE: Computed tomography (CT) of the abdomen and pelvis was performed with 100 mL Omnipaque-350 intravenous contrast. Automated exposure control and iterative reconstruction technique were employe d. The dose-length product was 444.67 mGy-cm. COMPARISON: None FINDINGS: Lung bases are clear. Heart size is normal. No pericardial or pleural effusion. Liver, gallbladder, s pleen, pancreas and bilateral adrenal glands are normal. Bilateral nonobstructing nephrolithiasis inc luding 1 mm and 2 mm stones at lower pole calyces of the left kidney and 1 mm stone at the lower pole of the right kidney. No ureteral stones or hydronephrosis. Bowels including the appendix are normal. Bladder is normal. 2.9 cm left adnexal cyst/follicle. Bladder, anteverted uterus and right adnexa ar e unremarkable. No density likely contraceptive ring in the vaginal vault. Small amount of likely phy siologic free fluid in the pelvis. No abscess or free intraperitoneal gas. No pathologically enlarged abdominal or pelvic lymphadenopathy. Mild to moderate lower thoracic spondylosis. Multiple small Reynold morl's nodes in the lumbar and lower thoracic spine. IMPRESSION: 1. Bilateral nonobstructing nephrolithiasis. No acute intra-abdominal/pelvic process. Reviewed, dictated and finalized at location L. IMPRESSION: 1. Bilateral nonobstructing nephrolithiasis. No acute intra-abdominal/pelvic pr ocess.
--- NOTE | ~2023-06-24 | XR_ITS ---
EXAMINATION: XR chest 2V DATE: 06/24/2023 10:45 INDICATION: Carbon monoxide exposure with generalized chest pain TECHNIQUE: frontal and lateral views of the chest were obtained. COMPARISON: None FINDINGS: The lungs are clear with no focal airspace opacities, pulmonary edema, pleural effusion or pneumothor ax. The cardiomediastinal silhouette is normal. Visualized bones and soft tissues are unremarkable. IMPRESSION: 1. No acute cardiopulmonary disease. Reviewed, dictated and finalized at location L.
[2023-06-24 09:53] VITALS: BP 128/71; PULSE 84; RESP 16; TEMP 36.6; O2SAT 100
[2023-06-24 09:55] VITALS: BP 128/71; PULSE 77; RESP 16; TEMP 36.5; O2SAT 100
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
[2023-06-24] MEDS: SODIUM CHLORIDE 0.9% IV 1,000 ML 999 ML IV CONT (10:23)
[2023-06-24 10:42] LABS: Base Excess ABG -3.1 mmol/L (0-2); Carboxyhemoglobin 1.6 % (0-1.5); HCO3 ABG 17.6 mmol/L (23-29); Methemoglobin ABG 0.3 % (0-1.5); Oxygen Saturation ABG 98.5 % (95-97); Oxyhemoglobin 96.6 % (94-100); PCO2 ABG 22.2 mmHg (35-45); PO2 ABG 121.7 mmHg (80-90); Red Cell Distribution Width 13.2 % (11.6-14.4); Reduced Hemoglobin 1.5 % (0-1.5); Total Hemoglobin 13.9 g/dL (12.0-18.0); pH ABG 7.52 (7.35-7.45)
[2023-06-24 10:43] LABS: Device ROOM AIR; Modified Allen's Test Pass; Site Drawn LEFT RADIAL
[2023-06-24 12:09] LABS: Alanine Aminotransferase 19 U/L (14-59); Albumin Level 2.9 g/dL (3.4-5.0); Alkaline Phosphatase 69 U/L (46-116); Aspartate Amino Transferase 12 U/L (15-37); Bilirubin,Total 0.2 mg/dL (0.00-1.00); Blood Urea Nitrogen 8 mg/dL (7-18); Calcium 7.9 mg/dL (8.5-10.1); Chloride 109 mmol/L (98-108); Estimated CRCL calculation 114 ml/min; Estimated Glomerular Filt Rate > 60; Glucose 75 mg/dL (70-99); Lipase 17 U/L (16-77); Osmolality Calculated 291 mOsm/kg (285-295); Potassium 3.7 mmol/L (3.5-5.1); Sodium 142 mmol/L (136-145); Total Protein 5.8 g/dL (6.4-8.2)
[2023-06-24 12:16] LABS: Anion Gap 8 mmol/L (8-16); Carbon Dioxide 25 mmol/L (21-32)
[2023-06-24 13:09] LABS: Pregnancy On Board Control Positive; Urine Pregnancy Test Negative
[2023-06-24 13:40] LABS: Appearance Urine Slightly Cloudy (Clear); Bilirubin Urine Negative (Negative); Blood Urine 1+ (Negative); Color Urine Yellow (Yellow); Glucose Urine UA Negative (Negative); Ketones Urine Trace (Negative); Leukocyte Esterase Ur Negative LEU/UL (Negative); Nitrate Urine Negative (Negative); Protein Urine Negative (Negative); Specific Grav Ur >= 1.030 (1.010-1.020); Urobilinogen Urine 0.2 mg/dL (0.2-1.0)
[2023-06-24 13:47] LABS: Add Urine Microscopic? YES
[2023-06-24 13:48] LABS: Bacteria Urine 1+ /hpf; Mucus Urine Moderate /lpf; Squamous Epithelial Cell Urine Few /hpf (Few); WBC Urine 0-3 /hpf (0-3)
[2023-06-24 14:40] VITALS: BP 130/73; PULSE 73; RESP 18
[2023-06-24 16:20] VITALS: BP 134/72; PULSE 78; RESP 20; TEMP 36.7; O2SAT 99
--- NOTE | 2023-06-24 16:21 | PC.NURSE ---
1615 attempted to call report awaiting call back
--- NOTE | 2023-06-24 16:57 | PC.NURSE ---
1651 [facility] here for transport
[2023-06-24 17:01] LABS: Ferritin 21 ng/mL (8-252); Folic Acid 14.6 ng/mL (8.6->20); Iron 37 ug/dL (50-170); Percent Iron Saturation 13 % (12-57); Vitamin B12 382 pg/mL (193-986)
[2023-06-25 06:31] LABS: White Blood Count 7.8 K/mm3 (4.8-10.8)
[2023-06-25 06:32] LABS: Hematocrit 37.3 % (35.0-49.0); Hemoglobin 12.3 g/dL (12.0-15.0); Mean Platelet Volume 9.3 fl (9.2-11.8); Platelet Count Result 259 K/mm3 (150-420)
[2023-06-25 06:33] LABS: Basophils Percent Auto 0.4 % (0.0-1.0); Eosinophils Percent Auto 3.2 % (1.0-6.0); Immature Granulocyte Absolute 0.03 K/mm3 (0.00-0.00); Immature Granulocyte Percent A 0.3 % (0.0-0.0); Lymphocytes Percent Auto 38.3 % (18.0-42.0); Monocytes Percent Auto 10.8 % (2.0-11.0); Neutrophils Percent Auto 46.9 % (50.0-70.0)
[2023-06-25 06:34] LABS: Basophils Absolute Auto 0.03 K/mm3 (0.00-0.10); Eosinophils Absolute Auto 0.25 K/mm3 (0.02-0.50); Monocytes Absolute Auto 0.85 K/mm3 (0.10-0.90); Neutrophils Absolute Auto 3.68 K/mm3 (1.70-7.20)
[2023-06-27 11:18] LABS: Haptoglobin 166 mg/dL (43-212)
== END 2023-06-24 16:57 | disposition short-term general hospital (02) ==
PROVIDERS: Emergency Provider Emergency Medicine; PCP Family Medicine
DX: D64.9 Anemia, unspecified (principal); E03.9 Hypothyroidism, unspecified; Z79.899 Other long term (current) drug therapy; Z87.891 Personal history of nicotine dependence
CPT/HCPCS: 36415; 36600; 71046; 74177; 80053; 81001; 81025; 82375; 82607; 82728; 82746; 82805; 83010; 83050; 83540; 83550; 83690; 85025; 96360; 99285; J7030; Q9967

== ENCOUNTER 2023-06-24 17:42 | Observation (INO) | payer OTHER, SELFPAY ==
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
--- NOTE | 2023-06-24 17:58 | PC.NURSE ---
This patient, Shelia Hayes, was admitted to Medical Room 249-01. Patient/family oriented to hospital policies and general routines including ID bracelet, bed and alarms, visiting hours, pain management, procedures, bathroom and other care routines, personal items, smoking policy, room service/diet, and visiting hours. Information on how to activate the Rapid Response Team has been discussed. Patient/Family are encouraged to report perceived risks to care and to ask questions if they do not understand what they are told or what they should do.
[2023-06-24 18:09] LABS: Immature Reticulocyte Fraction 7.9 % (3.0-15.9); Reticulocyte Hemoglobin Conten 33.1 pg (28.2-35.7); Reticulocyte Percent 1.53 % (0.7-4.3); Reticulocytes Absolute 0.07 M/mm3 (0.02-0.10)
[2023-06-24 18:25] LABS: Prealbumin 20.7 mg/dL (17.6-36.0)
[2023-06-24 18:58] VITALS: BP 128/76; PULSE 76; RESP 18; TEMP 36.2; O2SAT 100
[2023-06-24 19:00] LABS: Hematocrit 38.2 % (37.0-47.0); Hemoglobin 12.4 g/dL (12.0-15.0)
[2023-06-24 20:00] VITALS: PULSE 72; RESP 18; O2SAT 100
[2023-06-24] MEDS: ACETAMINOPHEN 325 MG TABLET 650 MG PO (20:24)
[2023-06-24] MEDS: ONDANSETRON INJ 4 MG/2 ML VIAL IV PUSH (20:24)
[2023-06-24 22:15] VITALS: BMI 27.8
[2023-06-24 22:17] LABS: Free T4 Free Thyroxine Reflex 0.58 ng/dL (0.78-2.19)
[2023-06-24 22:21] VITALS: BP 120/65; PULSE 60; RESP 16; TEMP 36.4; O2SAT 99
[2023-06-25 01:33] LABS: IFOB Positive Control Positive; Immunochemical Fecal Occult Bl Negative (N)
[2023-06-25] MEDS: CYANOCOBALAMIN INJ 1,000 MCG/ML VIAL 1000 MCG IM (02:24)
[2023-06-25 05:49] LABS: Hematocrit 38.4 % (37.0-47.0); Hemoglobin 12.4 g/dL (12.0-15.0); Mean Corpuscular HGB Conc 32.3 g/dl (32-36); Mean Corpuscular Hemoglobin 30.2 pg (26-34); Mean Corpuscular Volume 93.7 fl (80-100); Mean Platelet Volume 9.8 fl (7.4-10.4); Platelet Count Result 286 k/mm3 (150-375); Red Cell Distribution Width 13.1 % (11.5-14.5); White Blood Count 8.3 K/mm3 (4.5-10.0)
[2023-06-25 05:54] LABS: Alanine Aminotransferase 17 U/L (6-35); Albumin Level 3.4 g/dL (3.5-5.1); Alkaline Phosphatase 67 U/L (38-126); Anion Gap 5 mmol/L (8-16); Aspartate Amino Transferase 30 U/L (14-36); Bilirubin,Total 0.3 mg/dL (0.2-1.3); Blood Urea Nitrogen 4 mg/dL (7-17); Calcium 8.5 mg/dL (8.4-10.2); Carbon Dioxide 21 mmol/L (22-30); Chloride 111 mmol/L (98-107); Estimated CRCL calculation 118 ml/min; Estimated Glomerular Filt Rate > 60; Glucose 86 mg/dL (65-110); Magnesium 2.1 mg/dL (1.6-2.3); Potassium 4.1 mmol/L (3.4-5.0); Sodium 137 mmol/L (137-145)
[2023-06-25] MEDS: LEVOTHYROXINE SODIUM 150 MCG TABLET PO (05:58)
[2023-06-25 07:31] VITALS: BP 113/63; PULSE 66; RESP 16; TEMP 36.6; O2SAT 100
[2023-06-25] MEDS: hydrOXYzine pamoate 25 MG CAPSULE 100 MG PO (08:12)
[2023-06-25] MEDS: PANTOPRAZOLE SODIUM IV 40 MG VIAL IV PUSH (08:12)
--- NOTE | 2023-06-25 10:59 | PM.DS ---
DS: Admitting Diagnosis Discharge Date 06/25/23 Admitting Diagnosis Abdominal pain DS: Discharge Diagnosis Discharge Diagnosis (1) Epigastric pain: Code(s): R10.13 - Epigastric pain Status: Acute (2) Normocytic anemia: Code(s): D64.9 - Anemia, unspecified Status: Acute (3) Dehydration: Code(s): E86.0 - Dehydration Status: Acute (4) Bilateral nephrolithiasis: Code(s): N20.0 - Calculus of kidney Status: Acute (5) Hypothyroidism: Code(s): E03.9 - Hypothyroidism, unspecified Status: Acute (6) Cannabis abuse, daily use: Code(s): F12.10 - Cannabis abuse, uncomplicated Status: Acute DS: Summary Hospital Course Hospital Course: This is a very pleasant 27-year-old female with history of gastroesophageal reflux disease, gastritis, kidney stones, hypothyroidism, anxiety, depression, and daily marijuana use who is being directly admitted to the medical floor from the emergency department at the [facility] [place] for further evaluation of abdominal pain and anemia. Over the last several years she has had ongoing issues with GERD for which she was previously on ranitidine though now she is on Nexium which he takes every other day due to the cost. Since Friday she has had an increase in her symptoms and she describes a severe, pressure-like discomfort in the epigastric region without significant radiation. She endorses nausea, dry heaves, and a couple of episodes of nonbloody and nonbilious emesis. Yesterday morning she vomited food that she had eaten the night before. She has not noticed any significant aggravating or alleviating factors; food does not seem to make that much of a difference. Labs done at the outside facility were significant for WBC count of 4.7, RBC 2.56, hemoglobin 7.6, hematocrit 24, platelet 161. Electrolytes were without significant abnormalities. Total protein and albumin were low at 5.8 and 2.9 respectively. Urine showed high specific gravity with 1+ ketones, 1+ blood, 11 to 20 RBC, 0 to 3 WBC, 1+ bacteria, and moderate mucus. CT of the abdomen pelvis showed bilateral nonobstructing nephrolithiasis without acute intra-abdominal or pelvic process. Repeat hemoglobin and hematocrit this evening were well within normal limits thus it is presumed that the labs drawn at the outside facility were erroneously as they may have been a bit diluted while being drawn through the IV. Pre-albumin was checked due to low total protein and albumin and that is well within normal limits. I have discussed these findings with GI specialist here at the hospital and he believes patient can be seen as an outpatient. Will discharge patient with GI referral. Patient's PPI was increased and it was also explained her that she can use omeprazole or pantoprazole if it is cheaper. Time Spent with Patient Time attestation: Total time spent providing and/or coordinating discharge services: Exam Narrative: GENERAL: Comfortable, no acute distress HENMT: moist mucous membranes EYES: EOM intact b/l NECK: no lymphadenopathy RESPIRATORY: clear to auscultation CARDIO: RRR GI: soft, nontender, bowel sounds present SKIN: no rashes EXTREMITIES: no edema, redness or tenderness DS: Data Data Completed and Pending Labs on day of discharge: Labs from last 24 hours 06/25/23 06/25/23 06/24/23 05:06 00:38 18:44 WBC 8.3 RBC 4.10 L Hgb 12.4 12.4 Hct 38.4 38.2 MCV 93.7 MCH 30.2 MCHC 32.3 RDW 13.1 Plt Count 286 MPV 9.8 Absolute Retic Percent Retic Immature Retic Fraction Retic Hgb Content Sodium 137 Potassium 4.1 Chloride 111 H Carbon Dioxide 21 L Anion Gap 5 L BUN 4 L Creatinine 0.60 L Estim Creat Clear Calc 118 Estimated GFR > 60 Glucose 86 Calcium 8.5 Magnesium 2.1 Total Bilirubin 0.3 AST 30 ALT 17 Alkaline Phosphatase 67 Total Protein 6.0 L Albumin 3.
[2023-06-26 23:18] LABS: Methylmalonic Acid 83 nmol/L (87-318)
== END 2023-06-25 11:30 | disposition home or self-care (01) ==
PROVIDERS: Physician Assistant; Admitting Provider Internal Medicine; PCP Family Medicine; Visit Provider Family Medicine
DX: R10.13 Epigastric pain (principal); D64.9 Anemia, unspecified; E86.0 Dehydration; K21.9 Gastro-esophageal reflux disease without esophagitis; K29.70 Gastritis, unspecified, without bleeding; K59.00 Constipation, unspecified; N20.0 Calculus of kidney; R63.4 Abnormal weight loss; R63.0 Anorexia; Z68.27 Body mass index [BMI] 27.0-27.9, adult; Z87.442 Personal history of urinary calculi; E03.9 Hypothyroidism, unspecified; F41.9 Anxiety disorder, unspecified; F32.A Depression, unspecified; Z87.891 Personal history of nicotine dependence; F12.10 Cannabis abuse, uncomplicated; Z79.3 Long term (current) use of hormonal contraceptives; Z79.1 Long term (current) use of non-steroidal anti-inflammatories (NSAID); Z79.899 Other long term (current) drug therapy
CPT/HCPCS: 36415; 80053; 82274; 83735; 83921; 84134; 84439; 84443; 85014; 85018; 85027; 85046; 86850; 86900; 86901; 96372; 96374; A9270; C9113; G0378; G0379; J2405; J3420

== ENCOUNTER 2024-08-08 23:42 | Emergency (ER) | payer OTHER, SELFPAY ==
--- NOTE | ~2024-08-08 | CT_ITS ---
Non-contrast CT scan of the Abdomen and Pelvis Clinical indication: Left flank pain Technique: 2.5 mm axial scans were obtained through the abdomen and pelvis without intravenous or or al contrast. Dose reduction technique was used on this scan by utilizing automated exposure control a nd iterative reconstruction technique. The dose-length product (DLP) was 201.48 mGy-cm. COMPARISON: 06/24/2023 Findings: Images through the lung bases reveal no abnormalities. Bilateral nonobstructing renal stones measuring up to 2 mm in diameter. There is a 4.5 mm at the mid left ureter (axial image 41), with mild left hydroureteronephrosis to this level. No right ureteral s tone or right hydronephrosis. The liver, spleen, pancreas, gallbladder, and adrenals appear normal. There is no aortic aneurysm. There is no evidence of bowel obstruction. Images through the pelvis were performed. There is no evidence of ascites or lymphadenopathy. Urinary bladder unremarkable. No pelvic mass seen. No ascites. Impression: 4.5 mm mid left ureteral stone with mild left hydroureteronephrosis to this level. Additional small bilateral nonobstructing renal stones. Reviewed, dictated and finalized at location M. Impression: 4.5 mm mid left ureteral stone with mild left hydroureteronephrosis to this lev el. Additional small bilateral nonobstructing renal stones.
[2024-08-08 23:45] VITALS: BP 131/97; PULSE 61; RESP 18; TEMP 36.5; O2SAT 100
--- OUTSIDE RECORDS SUMMARY | 2024-08-08 23:45 | XMS_ITS | Encounter Summary ---
Author Organization [facility] Address [address] [place] [address] Care Team Providers Care Tie Binder Name Role Phone Maribel Anderson MD Primary Care Provider [phone] Vee Jacques MD Primary Care Provider Maribel Anderson MD Primary Care Provider [phone] Andry Healy MD Primary Care Provider [phone] Reason for Visit * Reason Onset Date Comments Request Lab Order 07/23/2010 [facility] called an d requested lab orders and scheduled appointment for October 08 at [place]. Please send orders to [facility], Encounter Details Date Type Department Care Team (Late st Contact Info) Description 07/23/2010 Telephone [facility] Pediatrics - Endocrinology [address] [place] [address]. [place] [address] Daniel Martins MD [address] [place] [address] Request Lab Order ([facility] called and requested lab orders and scheduled appointment for October 08 at [place]. Please send orders to 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 Gender Identity Not on file Sexual Orientation Not on file documented as of this encounter Plan of Treatment Not on file documented as of this encounter Visit Diagnoses Not on filedocumented in this encounter Care Teams Tie Binder Relationship Specialty Start Date End Date Maribel Anderson MD [address] [place] [address] PCP - General 07/10/09 10/03/10 Vee Jacques MD [facility] [place] [address] PCP - General 10/04/10 12/05/10 Maribel Anderson MD [address] [place] [address] PCP - General 12/06/10 12/09/10 Andry Healy MD [address] [facility] [address] [place] [address] PCP - General 12/10/10 documented as of this encounter
--- OUTSIDE RECORDS SUMMARY | 2024-08-08 23:45 | XMS_ITS | Clinical Summary ---
Author Organization [facility] Address [address] [place] [address] Care Team Providers Care Geographic Area Intelligence Officer Name Role Phone Andry Healy MD Primary Care Provider Source Comments [facility],non-owned Affiliates and Associated Physician Practices is amultiple site organization consisting of ambulatory clinics and hospital sitesin [place], [place], [place] and [place]. This disclosure is being madepursuant to the Care Everywhere program and may not contain all information available regarding this patient. Last updated 18.[facility] Medications * Be aware that medications may not be up to date on this document. Alwaysverify current medications with the patient. levothyroxine (SYNTHROID) 100 MCG tabletIndications:U nspecified hypothyroidism Take 1 Tab by mouth daily before breakfast. 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 Gender Identity Not on file Sexual Orientation Not on file Last Filed Vital Signs Vital Sign Reading Time Taken Comments Blood Pressure 100/60 12/10/2010 4:34 PM CDT Pulse 60 12/10/2010 4:34 PM CDT Temperature - - Respiratory Rate 16 12/10/2010 4:34 PM CDT Oxygen Saturation - - Inhaled Oxygen Concentration - - Weight 57.2 kg (126 lb 1.7 oz) 12/10/2010 4:34 P M CDT Height 158.8 cm (5' 2.52 ) 12/10/2010 4:34 PM CD T Body Mass Index 22.68 12/10/2010 4:34 PM CDT Plan of Treatment Health Maintenance Due Date Last Done Comments PAP SMEAR 1995 HIV SCREENING 10/02/2010 HEPATITIS C SCREENING 09/28/2013 DTAP/TDAP/TD VACCINES (1 - Tdap) 10/02/2014 HEPATITIS B VACCINE (1 of 3 - 19+ 3-dose series) 10/02/2014 COVID-19 VACCINE (1 - 2023-2 5 season) 2023 DEPRESSION SCREENING 04/14/2024 INFLUENZA VACCINE (Season Ended) 2024 ZOSTER VACCINE (1 of 2) 10/02/2045 HIB VACCINE Aged Out No longer eligi ble based on patient's age to complete this topic HPV VACCINE Aged Out No longer eligi ble based on patient's age to complete this topic MENINGOCOCCAL (Group B) VACC INE SHARED DECISION-MAKING Aged Out No longer eligibl e based on patient's age to complete this topic MENINGOCOCCAL GROUPS A/C/Y/W VACCINE Aged Out No longer eligible b ased on patient's age to complete this topic PNEUMOCOCCAL VACCINE Aged Out No long er eligible based on patient's age to complete this topic Care Teams Geographic Area Intelligence Officer Relationship Specialty Start Date End Date Andry Healy MD [address] [place] [address] PCP - General 12/10/10
--- OUTSIDE RECORDS SUMMARY | 2024-08-08 23:45 | XMS_ITS | Clinical Summary ---
Author Organization [facility] Address [facility] [place] [address] Care Team Providers Care Rotary Machine Operator Name Role Phone Gamaliel Bowman MD Primary Care Provider [phone] Allergies No known active allergies Medications HYDROcodone-levon taminophen (NORCO) 5-325 MG tabletIndicatio ns:Acute Pain < 7 Day Supply Take 1-2 tablets by mouth every 6 (six) hours as needed for Pain. Indications: Acute Pain < 7 Day Supply 16 tablet 3 Active albuterol sulfate HFA 108 (90 Base) MCG/ACT inhaler INHALE 2 INHALATION BY MOUTH EVERY 4 HOURS NEEDED 2 Active esomeprazole (NEXIUM) 20 MG capsule 3 Active Etonogestrel-Et hinyl Estradiol 0.12-0.015 MG/24HR RING 3 Active hydrOXYzine (VISTARIL) 50 MG capsule 3 Active levothyroxine (SYNTHROID) 150 MCG tablet 3 Active Social History Tobacco Use Types Packs/Day Years Used Date Smoking Tobacco: Never Smokeless Tobacco: Never Alcohol Use Standard Drinks/Week Comments Yes 0 (1 standard drink = 0.6 oz pur e alcohol) occasional Comments No Sex and Gender Information Value Date Recorded Sex Assigned at Female 04/30/2024 6:51 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 Legal Sex Female 9:25 PM DROP WIRE ALIGNER Gender Identity Not on file Sexual Orientation Not on file Last Filed Vital Signs Vital Sign Reading Time Taken Comments Blood Pressure 120/81 07/30/2022 12:52 PM CDT Pulse 60 07/30/2022 12:52 PM CDT Temperature 36.7 C (98.1 F) 07/30/2022 12:52 PM CDT Respiratory Rate 18 07/30/2022 12:52 PM CDT Oxygen Saturation 100% 07/30/2022 12:52 PM CDT Inhaled Oxygen Concentration - - Weight 81.6 kg (180 lb) 07/23/2022 2:08 PM CDT Height 160 cm (5' 3 ) 07/23/2022 2:08 PM CDT Body Mass Index 31.89 07/23/2022 2:08 PM CDT Plan of Treatment Health Maintenance Due Date Last Done Comments Cervical Cancer Screening Pap Smear (Age 21 to 29) Every 3 Years 1995 Cervical Cancer Screening 1995 Annual Physical 10/02/1998 Hepatitis C 10/02/2013 COVID-19 Vaccine ( season) 2023 DTaP, Tdap and Td Vaccines (5 - Td or Tdap) 10/23/2030 10/23/2020, 01/18/2013, 09/02/2005, Additional history exists Meningococcal Vaccine Aged Out 11/10/2006 No marielena isabel eligible based on patient's age to complete this topic HPV Vaccines Completed 04/27/2007, 01/12, 11/10/2006 Hepatitis B Vaccines Completed 09/18/2010, 02/13/1996, 1995, Additional history exists Meningococcal B Vaccine Aged Out No l onger eligible based on patient's age to complete this topic Pneumococcal Vaccine: Pediatrics (0 to 5 Years) and At-Risk Patients (6 to 49 Years) Aged Out No longer eligible based on patient's age to complete this topic RSV Immunizations Under 20 Months Aged Out No longer eligible based on patient's age to complete [place] [address] [facility] MEDICAL REIMBURSEMENTS OF MARCIE Care Teams Rotary Machine Operator Relationship Specialty Start Date End Date Gamaliel Bowman MD [address] [place] [address] PCP - General FAMILY PRACTICE 04/21/20
--- NOTE | 2024-08-09 00:05 | ED_ITS ---
HPI - Abdominal Pain General Chief Complaint: Urogenital-Female Stated Complaint: urogenital female Time Seen by Provider: 08/08/24 23:52 Source: patient Mode of arrival: ambulatory Limitations: no limitations History of Present Illness HPI narrative: Patient is a 28-year-old female with left flank pain that radiates from her left mid back down to her left flank. This is similar to prior kidney stone passage in the past. She has a history of kidney stones. She does not have a urologist. She has not required procedure in the past. MD elicited complaint: flank pain ( Left) Pertinent past history: kidney stones Onset (ago): day(s) ( 1) Pain Consistency: constant Location: L flank Severity: severe Pain scale (0-10): 8 Quality: stabbing and sharp Radiation: L flank and back ( left) Migration to: LLQ Exacerbating factors: nothing Relieving factors: nothing Context: confirms history of similar episodes Associated symptoms: nausea Treatments prior to arrival: other ( none) Related Data Home Medications ?Medication ?Instructions ?Recorded ?Confirmed ?Last Taken ?Type etonogestrel 0.12 mg-ethinyl 1 vag ring vaginal ONCE 06/19/19 08/09/24 Unknown History estradiol 0.015 mg/24 hr vaginal ring (NuvaRing) hydroxyzine pamoate 50 mg capsule 100 mg PO DAILY 07/30/22 08/09/24 Unknown History esomeprazole magnesium 20 mg 20 mg PO DAILY 06/24/23 08/09/24 Unknown History capsule,delayed release (Nexium) albuterol sulfate 90 mcg/actuation inhalation 08/09/24 Unknown History aerosol inhaler propranolol 80 mg capsule,24 mg PO 08/09/24 Unknown History hr,extended release Allergies Allergy/AdvReac Type Severity Reaction Status Date / Time No Known Drug Allergies Allergy Unknown Unknown Verified 08/09/24 00:00 Review of Systems 2 Review of Systems: All systems reviewed & are unremarkable except as noted in HPI and below Constitutional: Constitutional: Reports no additional constitutional complaints Eyes: Eyes: Reports no additional eye complaints ENT: Reports system reviewed and no additional complaints, except as documented Cardiovascular: Cardiovascular: Reports no additional cardiovascular complaints Respiratory: Respiratory: Reports no additional respiratory complaints Gastrointestinal: Gastrointestinal: Reports no additional gastrointestinal complaints Genitourinary: Genitourinary: Reports no additional female genitourinary complaints Musculoskeletal: Musculoskeletal: Reports no additional musculoskeletal complaints Integumentary/Breasts: Skin/Breast: Reports system reviewed and no additional complaints, except as docu Neurologic: Reports system reviewed and no additional complaints, except as documented Psychiatric: Psychiatric: Reports no additional psychiatric complaints Endocrine: Endocrine: Reports no additional endocrine complaints Hematologic/Lymphatic: Hematologic/Lymphatic: Reports no additional hematologic/lymphatic complaints Allergic/Immunologic: Allergic/Immunologic: Reports no additional allergic/immunologic complaints PMFSH Past Medical History Medical History Cannabis abuse, daily use Anxiety Asthma Hypothyroidism Depression Surgical History Surgical History History of tonsillectomy Family History Family History Mother No problems noted. Other Cancer Cerebrovascular accident Diabetes mellitus Family history of arthritis Family history of cardiovascular disease Family history of lung disease Hypertension Social History Social History Social History: Surrogate medical decision maker: Tahira Yan, mother. Code status: Full code. Smoking status: Former smoker Additional smoking assessment comments: Quit smoking cigarettes in 2018, vapes daily. Alcohol intake: current Alcohol use details: Occasional alcohol use in moderation. Substance use: current Substance use type: marijuana Last use: Daily marijuana use Do You Feel Safe in your Home?: Yes Lack of Transportation: No Lack of Food: Never True Current Housing: I Have Housing Concerned About Future Housing: No Difficulty Paying Gas/Electric Bills: No Difficulty Paying for Meds: No Currently Unemployed: No Education: High School Diploma/GED Difficulty w/ Childcare or Family Care: No Spiritual care concerns: No Exam 2 Const: General: healthy appearing Nutritional Appearance: well nourished Orientation/consciousness: patient oriented x3 Limitations: no limitations Other: patient having acute distress of pain left flank HENMT: Head: normal to inspection Ears: external ears normal F levon/Nose/Sinus: Normal external nose present Eyes: Conjunctivae: conjunctivae normal Pupils: Equal, round and reactive pupils present EOM: EOMs intact bilaterally Neck: Neck: normal visual inspection Chest: Chest palpation & inspection: normal inspection of the chest Resp: Effort & Inspection: normal respiratory effort and not labored A uscultation: clear to auscultation bilaterally and no crackles Cardio: Rate: regular rate Rhythm: regular rhythm Heart sounds: no murmurs GI: Inspection: non-distended GI Palp: Yes Soft to palpation and No Tenderness to palpation present (GI) Auscultation: normal bowel sounds : General: Yes bladder normal to palpation Back/Spine/Pelvis: Back: No no CVA tenderness and CVA tenderness ( left flank) Skin: General skin exam: normal color Rashes: no rashes Wounds: no wounds Neuro: General: patient oriented x3 Cranial nerves: Yes Nystagmus not present Speech: normal speech Gait exam (Neuro): Normal gait present Extrem: General: normal to inspection Psych: Mental Status: mental status grossly normal Affect: normal affect Attitude: cooperative Course Vital Signs Vital signs: Vital Signs Temperature 36.5 C 08/08/24 23:45 Pulse Rate 61 08/08/24 23:45 Respiratory Rate 18 08/08/24 23:45 Blood Pressure 131/97 H 08/08/24 23:45 Pulse Oximetry 100 08/08/24 23:45 Oxygen Delivery Room Air 08/08/24 23:45 Temperature 36.5 C 08/08/24 23:45 Pulse Rate 61 08/08/24 23:45 Respiratory Rate 18 08/08/24 23:45 Blood Pressure 131/97 H 08/08/24 23:45 Pulse Oximetry 100 08/08/24 23:45 Oxygen Delivery Room Air 08/08/24 23:45 MDM - Abdominal Pain MDM Narrative Medical decision making narrative: patient is a 28-year-old female with left flank pain this evening. Her pain is staying around the left upper back and left flank region. We will go ahead and do a kidney stone workup at this time and treatment. Lab Data Attestation: I reviewed the patient's lab results. 08/09/24 00:52 08/09/24 00:52 Labs: Lab Results 08/08/24 08/09/24 08/09/24 Range/Units 23:59 00:17 00:52 WBC 13.4 H (4.8-10.8) K/mm3 RBC 4.02 L (4.20-5.40) M/mm3 Hgb 12.4 (12.0-15.0) g/dL Hct 38.1 (35.0-49.0) % MCV 94.8 (78.0-102.0) fL MCH 30.8 (27.0-31.0) pg MCHC 32.5 (32-36) g/dL RDW 12.9 (11.6-14.4) % Plt Count 418 (150-420) K/mm3 MPV 9.4 (9.2-11.8) fl Immature Gran % (Auto) 0.7 H (0.0-0.0) % Neut % (Auto) 46.3 L (50.0-70.0) % Lymph % (Auto) 41.6 (18.0-42.0) % [place] % (Auto) 8.5 (2.0-11.0) % Eos % (Auto) 2.4 (1.0-6.0) % Baso % (Auto) 0.5 (0.0-1.0) % Lymph # (Auto) 5.56 H (1.10-4.50) K/mm3 [place] # (Auto) 1.14 H (0.10-0.90) K/mm3 Eos # (Auto) 0.32 (0.02-0.50) K/mm3 Baso # (Auto) 0.07 (0.00-0.10) K/mm3 Abs Immat Gran (auto) 0.10 H (0.00-0.00) K/mm3 Absolute Neuts (auto) 6.18 (1.70-7.20) K/mm3 Absolute Nucleated RBC 0.00 (0.00-0.00) K/mm3 Nucleated RBC % 0.0 (0-0.0) % Sodium 142 (136-145) mmol/L Potassium 4.0 (3.5-5.1) mmol/L Chloride 107 (98-108) mmol/L Carbon Dioxide 29 (21-32) mmol/L Anion Gap 6 (4-12) mmol/L BUN 17 (7-18) mg/dL Creatinine 1.02 (0.55-1.02) mg/dL Estim Creat Clear Calc 68 ml/min Estimated GFR > 60 (59 - ) Glucose 87 (70-99) mg/dL Calculated Osmolality 294 (285-295) mOsm/kg Calcium 9.0 (8.5-10.1) mg/dL Total Bilirubin 0.5 (0.00-1.00) mg/dL AST 12 L (15-37) U/L ALT 21 (14-59) U/L Alkaline Phosphatase 66 (46-116) U/L Total Protein 7.1 (6.4-8.2) g/dL Albumin 3.5 (3.4-5.0) g/dL Lipase 29 (16-77) U/L Urine Color Light yellow (Yellow) Urine Appearance Turbid A (Clear) Urine pH 6.0 (5.0-8.0) Ur Specific [place] 1.025 H (1.010-1.020) Urine Protein Trace H (Negative) Urine Glucose (UA) Negative (Negative) Urine Ketones Negative (Negative) Ur Blood (Man) 3+ H (Negative) Urine Nitrate Negative (Negative) Urine Bilirubin Negative (Negative) Urine Urobilinogen 0.2 (0.2-1.0) mg/dL Leukocyte Esterase Rfl Negative (Negative) ALDAIR/UL Urine RBC >75 H (0-2) /hpf Urine WBC 21-30 H (0-3) /hpf Urine WBC Clumps Present H (None) /hpf Ur Squamous Epith Cells Moderate H (Few) /hpf Amorphous Sediment Heavy H (None) Urine Bacteria 4+ H (None) /hpf Urine Mucus Heavy H /lpf Urine Test Negative Imaging Data Attestation: I personally reviewed and interpreted this imaging study as follows: Radiologist's impression: CT scan of the abdomen and pelvis without contrast shows a 4 mm left mid ureter stone Discharge Plan Discharge Clinical Impression: Calculus, ureteral UTI (urinary tract infection) Qualifiers: Urinary tract infection type: site unspecified Hematuria presence: with hematuria Qualified Code(s): N39.0 - Urinary tract infection, site not specified Patient Disposition: Home Condition: Stable Instructions: Antibiotic Form, Kidney Stones (ED) Additional Instructions: please follow-up with primary doctor in the next week. Please strain all urine to capture the stone when it arrives. Please follow-up with the urologist as a baseline appointment and be followed regularly. Patient Language: Estonian Prescriptions: New tamsulosin [Flomax] 0.4 mg capsule 0.4 mg PO DAILY Qty: 30 0RF methylprednisolone [Medrol] 4 mg tablet 4 mg PO TID 3 Days Qty: 9 0RF hydrocodone-acetaminophen 5-325 mg tablet 1 tablet PO Q8H PRN (Reason: pain) Qty: 20 0RF cephalexin 500 mg capsule 500 mg PO BID 7 Days Qty: 14 0RF No Action etonogestrel-ethinyl estradiol [NuvaRing] 0.12-0.015 mg/24 hr Ring 1 vag ring VAGINAL ONCE hydroxyzine pamoate 50 mg capsule 100 mg PO DAILY propranolol 80 mg capsule,extended release 24 hr PO albuterol sulfate 90 mcg/actuation HFA aerosol inhaler INHALATION esomeprazole magnesium [Nexium] 20 mg Capsule,Delayed Release(Dr/Ec) 20 mg PO DAILY levothyroxine 200 mcg Tablet 200 mcg PO DAILY Qty: 30 0RF Follow-up/Referrals: Gamaliel Bowman M.D. [Primary Care Provider] - Time of Disposition: 02:14
[2024-08-09 00:19] LABS: Add Urine Microscopic? YES; Bilirubin Urine Negative (Negative); Blood Urine 3+ (Negative); Color Urine Light Yellow (Yellow); Glucose Urine UA Negative (Negative); Ketones Urine Negative (Negative); Leukocyte Esterase Ur Negative LEU/UL (Negative); Nitrate Urine Negative (Negative); Protein Urine Trace (Negative); Specific Grav Ur 1.025 (1.010-1.020); Urobilinogen Urine 0.2 mg/dL (0.2-1.0)
[2024-08-09] MEDS: KETOROLAC (*BKC) 60 MG/2 ML VIAL IM (00:23)
--- NOTE | 2024-08-09 00:28 | PC.NURSE ---
patient medicated, see MAR. lights dimmed and stretcher adjusted for comfort. update provided. call light within reach.
[2024-08-09 00:29] LABS: Appearance Urine Turbid (Clear); RBC Urine >75 /hpf (0-2); WBC Clumps Urine Present /hpf; WBC Urine 21-30 /hpf (0-3)
[2024-08-09 00:30] LABS: Amorphous Sediment Urine Heavy; Bacteria Urine 4+ /hpf; Mucus Urine Heavy /lpf; Squamous Epithelial Cell Urine Moderate /hpf (Few)
[2024-08-09 00:31] LABS: Pregnancy On Board Control Positive; Urine Pregnancy Test Negative
--- NOTE | 2024-08-09 00:46 | PC.NURSE ---
patient returned from imaging, electroplating laborer at bedside for lab draw.
[2024-08-09 01:03] LABS: Basophils Absolute Auto 0.07 K/mm3 (0.00-0.10); Basophils Percent Auto 0.5 % (0.0-1.0); Eosinophils Absolute Auto 0.32 K/mm3 (0.02-0.50); Eosinophils Percent Auto 2.4 % (1.0-6.0); Hematocrit 38.1 % (35.0-49.0); Hemoglobin 12.4 g/dL (12.0-15.0); Immature Granulocyte Percent A 0.7 % (0.0-0.0); Lymphocytes Absolute Auto 5.56 K/mm3 (1.10-4.50); Lymphocytes Percent Auto 41.6 % (18.0-42.0); Mean Corpuscular HGB Conc 32.5 g/dL (32-36); Mean Corpuscular Hemoglobin 30.8 pg (27.0-31.0); Mean Corpuscular Volume 94.8 fL (78.0-102.0); Mean Platelet Volume 9.4 fl (9.2-11.8); Monocytes Absolute Auto 1.14 K/mm3 (0.10-0.90); Monocytes Percent Auto 8.5 % (2.0-11.0); Neutrophils Absolute Auto 6.18 K/mm3 (1.70-7.20); Neutrophils Percent Auto 46.3 % (50.0-70.0); Platelet Count Result 418 K/mm3 (150-420); Red Blood Count 4.02 M/mm3 (4.20-5.40); Red Cell Distribution Width 12.9 % (11.6-14.4); White Blood Count 13.4 K/mm3 (4.8-10.8)
[2024-08-09 01:09] LABS: Alanine Aminotransferase 21 U/L (14-59); Albumin Level 3.5 g/dL (3.4-5.0); Alkaline Phosphatase 66 U/L (46-116); Anion Gap 6 mmol/L (4-12); Aspartate Amino Transferase 12 U/L (15-37); Bilirubin,Total 0.5 mg/dL (0.00-1.00); Blood Urea Nitrogen 17 mg/dL (7-18); Carbon Dioxide 29 mmol/L (21-32); Chloride 107 mmol/L (98-108); Estimated CRCL calculation 68 ml/min; Estimated Glomerular Filt Rate > 60; Glucose 87 mg/dL (70-99); Lipase 29 U/L (16-77); Osmolality Calculated 294 mOsm/kg (285-295); Sodium 142 mmol/L (136-145); Total Protein 7.1 g/dL (6.4-8.2)
--- NOTE | 2024-08-09 02:07 | PC.NURSE ---
patient update provided by Dr. Cisse at this time.
[2024-08-09] MEDS: TAMSULOSIN HCL 0.4 MG CAPSULE PO (02:20)
[2024-08-09] MEDS: CEPHALEXIN 500 MG CAPSULE PO (02:21)
[2024-08-09 02:23] VITALS: BP 101/64; PULSE 76; RESP 18; TEMP 36.8; O2SAT 98
== END 2024-08-09 02:43 | disposition home or self-care (01) ==
PROVIDERS: Emergency Provider Emergency Medicine; PCP Family Medicine
DX: N39.0 Urinary tract infection, site not specified (principal); N20.0 Calculus of kidney; E03.9 Hypothyroidism, unspecified; Z87.891 Personal history of nicotine dependence
CPT/HCPCS: 36415; 74176; 80053; 81001; 81025; 83690; 85025; 87086; 96372; 99284; A9270; J1885

== ENCOUNTER 2024-08-23 12:38 | Outpatient (CLI) | payer OTHER, SELFPAY ==
--- OUTSIDE RECORDS SUMMARY | 2024-08-23 12:41 | XMS_ITS | Encounter Summary ---
Author Organization [facility] Address [address] [place] [address] Care Team Providers Care Tree Specialist Name Role Phone Maribel Anderson MD Primary Care Provider Vee Jacques MD Primary Care Provider Maribel Anderson MD Primary Care Provider [phone] Andry Healy MD Primary Care Provider [phone] Reason for Visit * Reason Onset Date Comments Request Lab Order 07/23/2010 [facility] called an d requested lab orders and scheduled appointment for October 08 at [place]. Please send orders to [facility], Encounter Details Date Type Department Care Team (Late st Contact Info) Description 07/23/2010 Telephone [facility] Pediatrics - Endocrinology [address] [place] [address]. [place] [address] Daniel Martins MD [address] [place] [address] Request Lab Order ([facility] called and requested lab orders and scheduled appointment for October 08 at [place]. 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 Gender Identity Not on file Sexual Orientation Not on file documented as of this encounter Plan of Treatment Not on file documented as of this encounter Visit Diagnoses Not on filedocumented in this encounter Care Teams Tree Specialist Relationship Specialty Start Date End Date Maribel Anderson MD [address] [place] [address] PCP - General 07/10/09 10/03/10 Vee Jacques MD [facility] [place] [address] PCP - General 10/04/10 12/05/10 Maribel Anderson MD [address] [place] [address] PCP - General 12/06/10 12/09/10 Andry Healy MD [address] [facility] [address] [place] [address] PCP - General 12/10/10 documented as of this encounter
--- OUTSIDE RECORDS SUMMARY | 2024-08-23 12:41 | XMS_ITS | Clinical Summary ---
Author Organization [facility] Address [facility] [place] [address] Care Team Providers Care Applications Packager Name Role Phone Gamaliel Bowman MD Primary Care Provider [phone] Allergies No known active allergies Medications HYDROcodone-levon [...] Sex Assigned at Female 04/30/2024 6:51 AM NEWSSTAND VENDOR Legal Sex Female 9:25 PM NEWSSTAND VENDOR Gender Identity Not on file Sexual Orientation [...] age to complete this [place] [address] [facility] MEDICAL REIMBURSEMENTS OF [place]CIE Care Teams Applications Packager Relationship Specialty Start Date End Date Gamaliel Bowman MD [address] [place] [address] PCP - General FAMILY PRACTICE 04/21/20
--- OUTSIDE RECORDS SUMMARY | 2024-08-23 12:41 | XMS_ITS | Clinical Summary ---
Author Organization [facility] [employer] Address [address] [place] [address] Care Team Providers Care Molder Floor Name Role Phone Andry Healy MD Primary Care Provider Source Comments [facility] [employer],non-owned Affiliates and Associated Physician Practices is amultiple site organization consisting of ambulatory clinics and hospital sitesin [place], [place], [place] and [place]. This disclosure is being madepursuant to the Care Everywhere program and may not contain all information available regarding this patient. Last updated 18.[facility] [employer] Medications * Be aware that medications may [...] on file Legal Sex Female 5:40 AM [employer]ACTOR K[employer] Gender Identity Not on file Sexual Orientation [...] age to complete this topic Care Teams Molder Floor Relationship Specialty Start Date End Date Andry Healy MD [address] [place] [address] PCP - General 12/10/10
[2024-08-23 12:49] LABS: Hematocrit 34.8 % (35.0-49.0); Hemoglobin 11.4 g/dL (12.0-15.0); Mean Corpuscular HGB Conc 32.8 g/dL (32-36); Mean Corpuscular Hemoglobin 31.1 pg (27.0-31.0); Mean Corpuscular Volume 94.8 fL (78.0-102.0); Mean Platelet Volume 8.9 fl (9.2-11.8); Platelet Count Result 325 K/mm3 (150-420); Red Blood Count 3.67 M/mm3 (4.20-5.40); Red Cell Distribution Width 12.6 % (11.6-14.4); White Blood Count 10.6 K/mm3 (4.8-10.8)
[2024-08-23 13:28] LABS: Band Neutrophils Percent 0 % (0-6); Lymphocytes Absolute Manual 4.24 K/mm3 (1.1-4.5); Lymphocytes Percent Manual 40 % (18-44); Monocytes Absolute Manual 0.53 K/mm3 (0.1-0.90); Monocytes Percent Manual 5 % (3-9); Neutrophils Percent Manual 50 % (46-73); Total Cells Counted 100
[2024-08-23 13:29] LABS: Basophils Percent Manual 1 % (0-1); Eosinophils Absolute Manual 0.42 K/mm3 (0.02-0.50); Eosinophils Percent Manual 4 % (1-6); Platelet Estimate Adequate (Adequate)
[2024-08-23 14:33] LABS: Alanine Aminotransferase 19 U/L (6-35); Albumin Level 3.8 g/dL (3.5-5.1); Alkaline Phosphatase 54 U/L (38-126); Anion Gap 3 mmol/L (4-12); Aspartate Amino Transferase 22 U/L (14-36); Bilirubin,Total 0.4 mg/dL (0.2-1.3); Blood Urea Nitrogen 15 mg/dL (7-17); Calcium 9.2 mg/dL (8.4-10.2); Carbon Dioxide 28 mmol/L (22-30); Chloride 106 mmol/L (98-107); Estimated Glomerular Filt Rate > 60; Glucose 78 mg/dL (65-110); Osmolality Calculated 283 mOsm/kg (285-295); Potassium 4.2 mmol/L (3.4-5.0); Sodium 137 mmol/L (137-145)
[2024-08-23 15:05] LABS: Thyroid Stimulating Hormone 0.278 uIU/mL (0.465-4.680)
== END 2024-08-23 12:39 | disposition home or self-care (01) ==
PROVIDERS: PCP Family Medicine; Visit Provider Physician Assistant
DX: N20.0 Calculus of kidney (principal); E03.9 Hypothyroidism, unspecified
CPT/HCPCS: 36415; 80053; 84443; 85025